=== PATIENT | female | born 1945 | race Caucasian/White ===

== ENCOUNTER 2016-08-14 07:31 | Emergency (ER) | payer MEDICARE, OTHER ==
[2016-08-14] MEDS ORDERED: FLOVENT DISKUS50 MCG (07:55)
[2016-08-14] MEDS ORDERED: SYNTHROID88 MC1 PO (07:55)
[2016-08-14] MEDS ORDERED: SINGULAIR10 M1 PO (07:56)
[2016-08-14] MEDS ORDERED: VENTOLIN HFA18 G2 INH (07:57)
[2016-08-14 08:42] LABS: BASO % 1.1 % (0-2); BASO ABSOLUTE COUNT 0.1 tho/cmm (0.0-0.2); EOS % 7.4 % (0-7); EOSINOPHIL ABSOLUTE COUNT 0.7 tho/cmm (0.0-0.7); HGB-HEMOGLOBIN 14.6 gm/dl (12.0-15.5); IMMATURE GRANULOCYTES ABSOLUTE 0.04 tho/cmm (0-0.03); IMMATURE GRANULOCYTES PERCENT 0.4 % (0-0.3); LYMPH % 28.1 % (20-45); LYMPH ABSOLUTE COUNT 2.5 tho/cmm (0.8-4.5); MCH (MEAN CORPUSCULAR HGB) 30.5 pg (28.0-32.0); MEAN PLATELET VOLUME 10.1 cmc (9.4-12.4); MONO % 6.4 % (0-12); MONOCYTE ABSOLUTE COUNT 0.6 tho/cmm (0.0-1.2); NEUTROPHIL ABSOLUTE COUNT 5.1 tho/cmm (1.6-8.0); NEUTROPHIL-AUTOMATED 5.1 tho/cmm (1.6-8.0); NEUTROPHILS % 56.6 % (40-80); PLATELET COUNT 341 tho/cmm (150-450); RED BLOOD COUNT 4.78 mil/cmm (4.00-5.20); RED CELL DISTRIBUTION WIDTH 13.7 % (12.4-16.4)
[2016-08-14 08:52] LABS: ALB/GLOB RATIO 1.1 (0.8-2.0); ALBUMIN 4.2 g/dl (3.5-5.0); ALKALINE PHOSPHATASE 99 U/L (33-138); ALT/SGPT 27 U/L (12-78); BILIRUBIN,TOTAL 0.3 mg/dl (0-1.5); BLOOD UREA NITROGEN 8 mg/dl (6-24); CALCIUM 9.4 mg/dl (8.5-10.5); CARBON DIOXIDE-VENOUS 25 mmol/L (22-32); CHLORIDE 107 mmol/l (96-110); GLUCOSE 111 mg/dL (70-110); SODIUM 141 mmol/L (135-145); eGFR VALUE FOR BLACK 87 mL/Min
[2016-08-14 09:00] LABS: ANION GAP 13 mmol/L (0-20); AST/SGOT 23 U/L (10-40); POTASSIUM 3.8 mmol/L (3.7-5.1)
[2016-08-14] MEDS ORDERED: PREDNISONE10 M1 PO (09:13)
[2016-10-18] MEDS ORDERED: COMPLETE MULTI1 EAC2 PO (23:44)
[2016-10-18] MEDS ORDERED: CALCIUM CARBON600 M2 PO (23:44)
[2016-10-18] MEDS ORDERED: VITAMIN D32000 UNI3 PO (23:45)
[2016-10-18] MEDS ORDERED: COQ10-VIT E 201 EACH PO (23:45)
[2016-10-18] MEDS ORDERED: VITAMIN E400 UNI4 PO (23:45)
[2016-10-18] MEDS ORDERED: ASPIRIN81 M1 PO (23:46)
[2016-10-18] MEDS ORDERED: SYNTHROID88 MC1 PO (23:46)
[2016-10-18] MEDS ORDERED: SINGULAIR10 M1 PO (23:46)
[2016-10-18] MEDS ORDERED: FLONASE ALLERG9.9 ML (23:46)
[2016-10-18] MEDS ORDERED: VENTOLIN HFA18 G2 PO (23:47)
[2016-10-18] MEDS ORDERED: ZYRTEC1010 PO (23:47)
[2016-10-19] MEDS ORDERED: PREDNISONE10 M1 PO (01:39)
== END 2016-08-14 09:32 ==
LOC: EDMED 07:31
PROVIDERS: Emergency Medicine
DX: R06.02 Shortness of breath (principal); R06.2 Wheezing; F17.210 Nicotine dependence, cigarettes, uncomplicated
CPT/HCPCS: J2930